=== PATIENT | female | born 1985 | race African-American/Black ===

== ENCOUNTER 2019-02-06 21:00 | Inpatient (IN) | payer OTHER ==
[~2019-02-06 21:00] MED LIST: DEXTROSE 5%-LACTATED RINGERS 1,000 ML IV SCH
[2019-02-06] MEDS ORDERED: DEXTROSE 5%-LACTATED RINGERS 1,000 ML IV SCH (22:00)
[2019-02-06 22:26] LABS: BASO % 0.5 % (0-2.0); EOS % 1.2 % (0-4.5); HEMOGLOBIN 13.3 GM/dL (10.7-15.3); LYMPH % 23.2 % (8-40); MCH 29.8 pg (25.7-33.7); MCHC 33.4 g/dl (32.0-36.0); MEAN CELL VOLUME 89.2 fl (80-96); MEAN PLT VOLUME 9.1 fl (7.5-11.1); MONO % 10.4 % (3.8-10.2); NEUT % 64.7 % (42.8-82.8); PLATELET COUNT 250 K/MM3 (134-434); RBC 4.48 M/mm3 (3.60-5.2); RDW 13.6 % (11.6-15.6); WHITE BLOOD COUNT 8.5 K/mm3 (4.0-10.0)
[2019-02-06 22:28] VITALS: BMI 35.4
[2019-02-06 22:37] LABS: INR 0.96 (0.83-1.09); PROTHROMBIN TIME (PATIENT) 11.3 SEC (9.7-13.0)
[2019-02-06 22:40] LABS: ACTIVATED PTT 29.6 SECONDS (25.2-36.5)
[2019-02-06 22:47] LABS: BLOOD UREA NITROGEN 11.4 mg/dL (7-18); CREATININE 0.7 mg/dL (0.55-1.3); POTASSIUM 4.3 mmol/L (3.5-5.1)
[2019-02-06] MEDS ORDERED: DINOPROSTONE 10 MG VAGINAL SUPPOSITORY VG ONE (23:00)
[2019-02-07] MEDS ORDERED: DEXTROSE 5%-LACTATED RINGERS 1,000 ML IV SCH
--- NOTE | 2019-02-07 00:26 | PN ---
Progress Note, Labor Vaginal Exam #1 Labor Exam Date: 02/07/19 Labor Exam Time: 00:15 Heart Rate (range): 140's Dilatation: 1 Effacement (%): 50% Amniotic Membrane Status: Intact Presentation: Vertex/Position Station: -2 Remarks: FHR Category 1 after hydration Cervidil placed in posterior fornix
[2019-02-07] MEDS ORDERED: morphine SULFATE/PF 0.5 MG/ML (2cc Syringe - QUVA) ONE (02:53)
[2019-02-07] MEDS ORDERED: ceFAZolin SODIUM 1 GM VIAL ONE (03:07)
[2019-02-07] MEDS ORDERED: OXYTOCIN 10 UNITS/ML VIAL ONE (03:24)
[2019-02-07] MEDS ORDERED: ONDANSETRON 4 MG/2 ML VIAL IVPUSH PRN (03:57)
[2019-02-07] MEDS ORDERED: CITRIC ACID/SODIUM CITRATE 30 ML UNIT-DOSE CUP PO ONE (04:24)
[2019-02-07] MEDS ORDERED: oxyCODONE HCL 5 MG TABLET PO PRN (04:29)
[2019-02-07] MEDS ORDERED: SENNOSIDES/DOCUSATE COMBO (SENNA PLUS) TABLET (UD) PO PRN (04:29)
[2019-02-07] MEDS ORDERED: METHYLERGONOVINE MALEATE 0.2 MG/1 ML AMP IM PRN (04:29)
[2019-02-07] MEDS ORDERED: OXYTOCIN 20 UNITS in 0.9% NS 20 UNIT/1,000 ML INFUS.BAG IV SCH (04:30)
[2019-02-07] MEDS ORDERED: ELECTROLYTE-148 SOLN 1,000 ML IV SCH (04:30)
--- NOTE | 2019-02-07 04:37 | OP ---
Operative Note - Note: Operative Date: 02/07/19 Pre-Operative Diagnosis: non reassuring fht Operation: primary lt c s Findings: ca foot x 2 tight , post date Surgeon: Eliot Serrato Social Human Services Assistants: Cuong Kumar Anesthesiologist/TRANS ROUTER: Kristi Mims Anesthesia: Spinal Estimated Blood Loss (mls): 500 Operative Report Dictated: Yes
--- NOTE | 2019-02-07 04:42 | HP ---
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: Alzheimer's, CVA, Dementia, Migraine, Multiple Sclerosis, Peripheral Neuropathy, Parkinson's, Seizure, Syncope, TIA, Vertigo, Other Cardiovascular: No: AFIB, Aneurysm, Aortic Insufficiency, Aortic Stenosis, CAD, CHF, Deep Vein Thrombosis, HTN, Hyperlipdemia, GA, Mitral Insufficiency, Mitral Stenosis, Murmur, Pulmonary Hypertension, Other Pulmonary: No: Asthma, Bronchitis, Cancer, COPD, O2 Dependent, Pneumonia, Previously Intubated, Pulmonary Embolus, Pulmonary Fibrosis, Sleep Apnea, Other Gastrointestinal: No: Ascites, Cancer, Constipation, Crohn's Disease, Diverticulitis, Diverticulosis, Esophageal Varices, Gastritis, GERD, GI Bleed, Hemorrhoids, Hiatal Hernia, Inflamatory Bowel Disease, Irritable Bowel Disease, Pancreatitis, Peptic Ulcer Disease, Ulcerative Colitis, Other Hepatobiliary: No: Cirrhosis, Cholelithiasis, Cholecystitis, Choledocholithiasis , Hepatitis A, Hepatitis B, Hepatitis C, Other Renal/: No: Renal Failure, Renal Inusuff, BPH, Cancer, Hematuria, Hemodialysis , Neurogenic Bladder, Renal Calculi, UTI, Other Reproductive: No: Ectopic , Endometriosis, Fibroids, PID, Polycystic Ovary Syndrome, Postmenopausal, Other ...: 1 ...Para: 0 ...Term: 0 ...: 0 ...Spon : 0 ...Induced : 0 ...Multiple Gestation: 0 ... Weeks Gestation by Dates: 41.1 ...EDC by Grecia: 01/29/19 Heme/Onc: No: Anemia, B12 Deficiency, Bleeding Disorder, Cancer, Current Chemotherapy, Current Radiation Therapy, Hemochromatosis, Hypercoaguable State, Myeloproliferative Synd, Sickle Cell Disease, Sickle Cell Trait, Thrombocytopenia, Other Infectious Disease: No: AIDS, C-Diff, Herpes Zoster, HIV, MRSA, STD's, Tuberculosis, VREF, Other Psych: No: Addictions, Anxiety, Bipolar, Depression, Panic, Psychosis, Schizophrenia, Other Musculoskeletal: No: Bursitis, Chronic low back pain, Hemiparesis, Hemiplegia, Osteoarthritis, Paraplegia, Other Rheumatology: No: Fibromyalgia, Gout, Lupus, Rheumatoid Arthritis, Sarcoidosis, Vasculitis, Other ENT: No: Allergic Rhinitis, Sinusitis, Other Endocrine: No: Philadelphia's Disease, Artemas's Disease, Diabetes Insipidus, Diabetes Mellitus, Hyperparathyroidism, Hyperthyroidism, Hypothyroidism, Osteopenia, SIADH, Other Dermatology: No: Basal Cell, Cellulitis, Eczema, Melanoma, Psoriasis, Squamous Cell, Other - Past Surgical History Past Surgical History: No: None, AAA Repair, AICD, Amputation, Appendectomy, Arthrosocopy, AV Fistula/Graft, Bariatric Surgery, Breast Biopsy, Bypass, CABG, Carotid Endarterectomy, Cataract Removal, Cholecystectomy, Colectomy, Colonoscopy, Colostomy, Craniotomy, , Cystectomy, Hernia Repair, Hysterectomy, Ileal Conduit, Ileosotomy, Joint Replacement, Kidney Transplant, Laminectomy, Liver Transplant, Mastectomy, Nephrectomy, Oopherectomy, Orchiectomy, Permanent Pacemaker, Prostatectomy, Splenectomy, Stent, Thoracotomy , TURP, Tonsillectomy, Tubal Ligation, Upper Endoscopy, Valve Replacement, Vasectomy, Vein Stripping/Ligation Hx Myomectomy: No Hx Transabdominal Cerclage: No - Advance Directives Advance Directives: No: Living Will, Health Care Proxy, DNR, Organ Donor, Tissue Donor, MOLST - Smoking History Smoking history: Never smoked Have you smoked in the past 12 months: No - Alcohol/Substance Use Hx Alcohol Use: No History of Substance Use: reports: None - Social History Usual Living Arrangement: No: Alone, With Spouse, With Parent, With Significant Other, With Child, Assisted Living, Halfway, Other ADL: Independent History of Recent Travel: No Home Medications - Allergies Allergies/Adverse Reactions: Allergies Allergy/AdvReac Type Severity Reaction Status Date / Time No Known Allergies Allergy Verified 02/06/19 22:17 - Home Medications Home Medications: Ambulatory Orders Vitamins (Sjr) - 1 tab PO DAILY 02/06/19 Family Medical History Family History: Denies Review of Systems - Review of Systems Constitutional: denies: No Symptoms, Chills, Diaphoresis, Fever, Lethargy, Loss of Appetite, Malaise, Night Sweats, Unintentional Wgt. Loss, Weakness, Other Eyes: denies: No Symptoms, Blind Spots, Blurred Vision, Double Vision, Eye Pain , Floaters, Photophobia, Recent Change in Vision, Other HENT: denies: No Symptoms, Difficult Swallowing, Ear Discharge, Ear Pain, Epistaxis, Gingival Bleeding, Hearing Loss, Mouth Swelling, Nasal Congestion, Ocular Prosthesis, Throat Pain, Toothache, Ringing in Ears, Other Neck: denies: No Symptoms, Decreased ROM, Lumps, Pain on Movement, Stiffness, Swollen Glands, Tenderness, Other Cardiovascular: denies: No Symptoms, Chest Pain, Edema, Palpitations, Shortness of Breath, Other Respiratory: denies: No Symptoms, Cough, Exercise Intolerance, Hemoptysis, Orthopnea, PND, Snoring, SOB, SOB on Exertion, Wheezing, Other Gastrointestinal: denies: No Symptoms, Abdominal Pain, Bloating, Constipation, Diarrhea, Dysphagia, Indigestion, Melena, Nausea, Rectal Bleeding, Vomiting, Vomiting Blood, Other Genitourinary: denies: No Symptoms, Burning, Discharge, Dysuria, Flank Pain, Frequency, Hematuria, Incontinence, Lesions, Menses, Pain, Testicular Mass, Testicular Pain, Testicular Swelling, Urgency, Vaginal Bleeding, Other Breasts: denies: No Symptoms Reported, See HPI, Breast Implants, Discharge from Nipple, Lumps, Pain, Skin Changes, Other Musculoskeletal: denies: No Symptoms, Back Pain, Crepitus, Decreased ROM, Extremity Pain, Joint Pain, Joint Swelling, Muscle Pain, Muscle Cramps, Muscle Weakness, Other Integumentary: denies: No Symptoms, Blister, Bruising, Change in Color, Eczema, Erythema, Incision, Lesions, Lump, Pallor, Pruritis, Rash, Wound, Other Neurological: denies: No Symptoms, Change in LOC, Change in Speech, Confusion, Dizziness, Headache, Incoordination, Numbness, Parasthesia, Pre-Existing Deficit , Seizure, Syncope, Tremors, Unsteady Gait, Weakness, Other Endocrine: denies: No Symptoms, Excessive Sweating, Flushing, Increased Hunger, Increased Thirst, Intolerance to Cold, Intolerance to Heat, Unexplained Weight Gain, Unexplained Weight Loss, Other Hematology/Lymphatic: denies: No Symptoms, Easily Bruised, Excessive Bleeding, Swollen Glands, Other Psychiatric: denies: No Symptoms, Altered Sleep Pattern, Anxiety, Depression, Hallucinations, Panic, Paranoia, Suicidal, Other Physical Exam - Maternity Vital Signs: Vital Signs Temperature 97.6 F 02/07/19 00:00 Pulse Rate 86 02/07/19 01:00 Respiratory Rate 19 02/07/19 01:00 Blood Pressure 110/60 02/07/19 01:00 O2 Sat by Pulse Oximetry (%) Constitutional: Yes: Well Nourished, No Distress, Calm Eyes: Yes: WNL, Conjunctiva Clear, EOM Intact HENT: Yes: WNL, Atraumatic, Normocephalic Neck: Yes: WNL, Supple, Trachea Midline Cardiovascular: Yes: WNL, Regular Rate and Rhythm Lungs: Clear to auscultation Breast(s): Yes: WNL - Abdominal Exam/OB Fundal Height: 41 Number of Fetuses: Single Presentation: Vertex Contractions: Yes Regularity: Irregular Intensity: Mild Monitor Mode: External Heart Rate Location: [facility] Category: I Accelerations: Uniform Decelerations: None - Vaginal Exam/OB Vaginal Bleediing: No Speculum Exam: No Amniotic Membrane Status: Intact Presentation: Vertex/Position Station: -2 - Physical Exam Musculoskeletal: Yes: WNL Extremities: Yes: WNL Edema: Yes Edema: LUE: 1+, RUE: 1+, LLE: 1+, RLE: 1+ Integumentary: Yes: WNL Deep Tendon Reflex Grade: Normal +2 ...Motor Strength: WNL Psychiatric: Yes: WNL, Alert, Oriented - Labs Lab Results: CBC, BMP 02/06/19 22:15 02/06/19 22:15 Assessment/Plan for induction with cervidil then pitocin in am.
[2019-02-07] MEDS ORDERED: OXYTOCIN 20 UNITS in 0.9% NS 20 UNIT/1,000 ML INFUS.BAG IV ONE (05:27)
--- NOTE | 2019-02-07 11:11 | PN ---
Progress Note (short form) - Note Progress Note: 33 yo F s/p C/S w duramorph pain well controlled now on PO meds good result of anesthetic care.
[2019-02-07] MEDS: IBUPROFEN 800 MG/8 ML IJ IVPB PRN ×2 (11:30→21:17)
[2019-02-08] MEDS: oxyCODONE HCL 5 MG TABLET PO PRN (02:12)
[2019-02-08] MEDS: ACETAMINOPHEN 325 MG TABLET (FP) PO PRN ×5 (02:12→20:15)
[2019-02-08] MEDS: SIMETHICONE 80 MG TAB.CHEW (FP) PO PRN ×5 (02:12→20:15)
[2019-02-08] MEDS ORDERED: BISACODYL 10 MG SUPP.RECT RC PRN (04:29)
[2019-02-08 06:50] LABS: BASO % 0.2 % (0-2.0); EOS % 0.7 % (0-4.5); HEMATOCRIT 37.1 % (32.4-45.2); HEMOGLOBIN 12.4 GM/dL (10.7-15.3); LYMPH % 8.5 % (8-40); MCH 29.6 pg (25.7-33.7); MCHC 33.4 g/dl (32.0-36.0); MEAN CELL VOLUME 88.8 fl (80-96); MEAN PLT VOLUME 8.4 fl (7.5-11.1); MONO % 5.9 % (3.8-10.2); NEUT % 84.7 % (42.8-82.8); PLATELET COUNT 239 K/MM3 (134-434); RBC 4.18 M/mm3 (3.60-5.2); WHITE BLOOD COUNT 12.8 K/mm3 (4.0-10.0)
[2019-02-08] MEDS: ENOXAPARIN NA (PORCINE) 40 MG/0.4 ML DISP.SYRIN SQ SCH (09:29)
[2019-02-08] MEDS: IBUPROFEN 600 MG TABLET (FP) PO PRN ×3 (10:53→20:16)
--- NOTE | 2019-02-08 17:40 | PATH ---
Surgical Pathology Report Patient Name: LEANA MAGAÑA V. [facility]. Rec. #: [id number] /Age/Gender: 1985 (Age: 33) / F Account: [id number] Location: [facility] OBS/ASSOCIATE FACULTY Taken: 02/07/2019 Received: 02/07/2019 Reported: 02/08/2019 Physicians: Eliot Serrato MD Specimen(s) Received PLACENTA Clinical History 40.2 weeks' gestation, nonreassuring FHR Final Diagnosis PLACENTA: THIRD TRIMESTER PLACENTA. TRIVASCULAR CORD. MEMBRANES WITH NO DIAGNOSTIC ABNORMALITIES. Electronically Signed Michaela Jasso M.D. Gross Description The specimen is received fresh labeled placenta and is a 470 gram, 19 x16 x 1.5cm. placenta with attached membranes and umbilical cord. The attached membranes are glistening, translucent, and insert marginally. The umbilical cord measures 33 cm. in length and averages 1.5 cm. in diameter. The cord inserts centrally, 4.6 centimeter to the nearest margin. No true knots or strictures are identified. Cut surface of the umbilical cord reveals 3 vessels. Sectioning reveals red-brown, spongy parenchyma. No lesions are identified. Compound Filler sections are submitted in three cassettes as follows: 1- membrane rolls and umbilical cord; 2-3- full thickness sections of placenta KWS/02/07/2019 bayki/02/07/2019
[2019-02-09] MEDS: IBUPROFEN 600 MG TABLET (FP) PO PRN ×4 (02:47→19:24)
[2019-02-09] MEDS: SIMETHICONE 80 MG TAB.CHEW (FP) PO PRN ×3 (02:47→13:59)
[2019-02-09] MEDS: ACETAMINOPHEN 325 MG TABLET (FP) PO PRN ×2 (02:48→19:23)
[2019-02-09] MEDS: oxyCODONE HCL 5 MG TABLET PO PRN ×2 (07:03→14:00)
[2019-02-09] MEDS: ENOXAPARIN NA (PORCINE) 40 MG/0.4 ML DISP.SYRIN SQ SCH (11:17)
[2019-02-10] MEDS: SIMETHICONE 80 MG TAB.CHEW (FP) PO PRN ×3 (03:21→11:30)
[2019-02-10] MEDS: ACETAMINOPHEN 325 MG TABLET (FP) PO PRN ×2 (03:21→08:13)
[2019-02-10] MEDS: IBUPROFEN 600 MG TABLET (FP) PO PRN ×3 (03:22→11:30)
[2019-02-10 08:21] LABS: BASO % 0.4 % (0-2.0); EOS % 3.6 % (0-4.5); HEMATOCRIT 33.9 % (32.4-45.2); HEMOGLOBIN 11.4 GM/dL (10.7-15.3); LYMPH % 28.7 % (8-40); MCH 29.9 pg (25.7-33.7); MCHC 33.6 g/dl (32.0-36.0); MEAN PLT VOLUME 8.4 fl (7.5-11.1); MONO % 10.8 % (3.8-10.2); NEUT % 56.5 % (42.8-82.8); PLATELET COUNT 239 K/MM3 (134-434); RBC 3.81 M/mm3 (3.60-5.2); RDW 13.7 % (11.6-15.6); WHITE BLOOD COUNT 6.4 K/mm3 (4.0-10.0)
[2019-02-10] MEDS ORDERED: oxyCODONE HCL 5 MG TABLET PO PRN (08:40)
[2019-02-10] MEDS: ENOXAPARIN NA (PORCINE) 40 MG/0.4 ML DISP.SYRIN SQ SCH (09:50)
[2019-02-10] MEDS ORDERED: DIPHTH,PERTUSS(ACELL),TET 0.5 ML DISP.SYRIN IM ONE (10:00)
[2019-02-10 12:54] VITALS: BP 118/72; PULSE 80; TEMP 98.1
--- NOTE | 2019-02-16 12:22 | OP ---
DATE OF OPERATION: 02/07/2019 PREOPERATIVE DIAGNOSIS: Nonreassuring heart rate tracing. POSTOPERATIVE DIAGNOSIS: Cord around the foot x2 tight and also postdate. PROCEDURE: Primary low transverse section. SURGEON: Eliot Serrato MD CAMERA TUNING ENGINEER: TRACIE Blunt ANESTHESIOLOGIST: SID Martin ANESTHESIA: Spinal. BLOOD LOSS: About 500 mL INDICATION: This is a 33-year-old female 41 weeks who was scheduled for induction process. Patient came in the hospital for Cervidil. However, patient was admitted and before the Cervidil was placed patient was already having variable decelerations, but the feta heart rate is category 1 with moderate variability with acceleration, but with occasionally repeat variable deceleration. So, we waited another hour. When there was no deceleration seen Cervidil was then placed. Then patient started having variable deceleration recur again. The patient's cervix was still fingertip and -3. So, at this time decision was made to take the patient for primary low transverse section. PROCEDURE: So, patient was placed on the operating table in the supine position after spinal anesthesia was obtained. The patient's abdomen and pelvis was prepped and draped in the usual sterile manner. Pfannenstiel incision was made. Incision was made through skin, subcutaneous tissue until the fascia was nicked in the midline. The fascia was extended bilaterally. Intraperitoneal cavity was entered. Bladder flap was not created. Low transverse segment was entered. Baby delivered from the LOP position. Baby was handed off to the fundraising assistant after umbilical cord doubly clamped and cut. Cord blood gas obtained. Placenta was removed. Uterus closed in single layer, first layer interlocking Vicryl sutures. Good hemostasis. Both gutters cleaned. Both ovaries, fallopian tubes, uterus were within normal limits. No complications. Patient tolerated procedure well and bladder flap was closed. Peritoneum was closed. Fascia was closed. Draining clear urine. Blood loss about 500 mL, and the patient tolerated the procedure well, transferred to recovery room in stable condition. MD GLO MORRISON/[id number]
--- NOTE | 2019-03-28 22:30 | DS ---
DATE OF ADMISSION: 02/06/2019 DATE OF DISCHARGE: 02/10/2019 FINAL DIAGNOSIS: Status post primary low transverse section to nonreassuring heart tracing and signs of failure to process. HOSPITAL COURSE: Please see dictation of section. Hospital course was uneventful. Postoperative day 1, day 2, and day 3 remained afebrile, had bowel movement, bowel sounds, and flatus. Wound area looked clean, dry, no sign of infection. Tolerating regular diet. Ambulating well. No sign of DVT. Was instructed to go home postoperative day 3. P.o. pain medication was given to the patient to go home with. Went home in stable condition. Will be seen in office in 2 weeks. Ambulating well. Tolerating regular diet. No sign of DVT. MD GLO MORRISON/[id number]
== END 2019-02-10 14:55 | disposition home or self-care (01) | DRG 788 ==
LOC: JLDR 21:00 → J3W 02-07 06:34
PROVIDERS: ADMIT Obstetrics & Gynecology; ATTEND Obstetrics & Gynecology
PROC: 10D00Z1 Extraction of Products of Conception, Low, Open Approach (ICD-10-PCS; principal; 2019-02-07)
PROC: 3E0P7VZ Introduction of Hormone into Female Reproductive, Via Natural or Artificial Opening (ICD-10-PCS; 2019-02-07)
DX: O76 Abnormality in fetal heart rate and rhythm complicating labor and delivery (principal); O48.0 Post-term pregnancy; Z3A.41 41 weeks gestation of pregnancy; O69.82X0 Labor and delivery complicated by other cord entanglement, without compression, not applicable or unspecified; Z37.0 Single live birth
CPT/HCPCS: 36415; 80048; 85025; 85610; 85730; 86593; 86850; 86900; 86901; 87389; 88307-TC; 90715